=== PATIENT | male | born 1955 | race Caucasian/White ===

== ENCOUNTER 2018-09-18 11:45 | Inpatient (IN) | payer OTHER ==
[2018-09-18 13:15] LABS: ADD MAN DIFF? NO
[2018-09-18 13:20] LABS: WHITE BLOOD COUNT 7.1 10^3/ul (4.8-10.8)
[2018-09-18 13:20] LABS: BASOPHILS % 0.3 % (0.0-2.0); HEMATOCRIT 31.8 % (42.0-52.0); HEMOGLOBIN 9.7 g/dl (14.0-18.0); LYMPHOCYTES # 0.8 10^3/ul (0.8-2.9); LYMPHOCYTES % 10.6 % (15.0-51.0); MEAN CORPUSCULAR HEMOGLOBIN 23.7 pg (29.0-33.0); MEAN CORPUSCULAR HGB CONC 30.5 g/dl (32.0-37.0); MEAN CORPUSCULAR VOLUME 77.8 fl (82.0-101.0); MEAN PLATELET VOLUME 9.1 fl (7.4-10.4); MONOCYTE # 0.3 10^3/ul (0.3-0.9); MONOCYTES % 4.5 % (0.0-11.0); NEUTROPHIL # 5.9 10^3/ul (1.6-7.5); PLATELET COUNT 290 10^3/UL (140-415); RED BLOOD COUNT 4.09 10^6/ul (4.70-6.10); RED CELL DISTRIBUTION WIDTH 19.2 % (11.5-14.5)
[2018-09-18 13:40] LABS: ALANINE AMINOTRANSFERASE 15 IU/L (13-69); ALBUMIN 4.1 g/dl (3.3-4.9); ALBUMIN/GLOBULIN RATIO 1.05; ALKALINE PHOSPHATASE 76 IU/L (42-121); ANION GAP 12 (5-13); ASPARTATE AMINO TRANSFERASE 30 IU/L (15-46); BILIRUBIN,INDIRECT 0.7 mg/dl (0-1.1); BILIRUBIN,TOTAL 0.7 mg/dl (0.2-1.3); BLOOD UREA NITROGEN 21 mg/dl (7-20); CALCIUM 9.6 mg/dl (8.4-10.2); CARBON DIOXIDE 31 mmol/L (21-31); CHLORIDE 100 mmol/L (97-110); CREATININE 0.65 mg/dl (0.61-1.24); Estimated GFR > 60 mL/min (>60); GLUCOSE 81 mg/dl (70-220); POTASSIUM 3.9 mmol/L (3.5-5.1); SODIUM 143 mmol/L (135-144)
[2018-09-18] MEDS: IOHEXOL 300MG/ML 150 ML BTL ×2 (14:51→16:47)
[2018-09-18] MEDS: SOD CHLORIDE 0.9% 100 ML ×2 (14:51→16:46)
[2018-09-18] MEDS ORDERED: SOD CHLORIDE 0.9% 1,000 ML IV (15:38)
[2018-09-18] MEDS ORDERED: ONDANSETRON 4 MG INJ IV ×2 (16:00→16:30)
[2018-09-18] MEDS ORDERED: ACETAMINOPHEN 325 MG TAB PO (16:00)
[2018-09-18] MEDS: FLUCONAZOLE 200 MG (PMX) 100 ML IVPB (16:27)
[2018-09-18] MEDS: NYSTATIN SUSP 5 ML CUP PO ×3 (16:28→20:18)
[2018-09-18] MEDS ORDERED: NACL 0.9% 3 ML SYG IV (16:30)
[2018-09-18 17:30] LABS: IRON 21 ug/dl (35-150)
[2018-09-18 17:39] LABS: % IRON SATURATION 6 % SAT (22-52); TOTAL IRON BINDING CAPACITY 346 ug/dl (241-421)
[2018-09-18] MEDS: DEXTROSE 5%-0.45% NACL 1,000 ML IV (18:19)
[2018-09-18] MEDS: FLUCONAZOLE 100 MG/50 ML (PMX) 50 ML IVPB (19:30)
[2018-09-19] MEDS: DEXTROSE 5%-0.45% NACL 1,000 ML IV ×4 (05:29→23:56)
[2018-09-19] MEDS: PANTOPRAZOLE 40 MG INJ IV (05:51)
[2018-09-19 05:57] LABS: ADD MAN DIFF? NO
[2018-09-19 06:04] LABS: WHITE BLOOD COUNT 5.9 10^3/ul (4.8-10.8)
[2018-09-19 06:04] LABS: BASOPHILS % 0.2 % (0.0-2.0); HEMATOCRIT 30.8 % (42.0-52.0); HEMOGLOBIN 9.2 g/dl (14.0-18.0); LYMPHOCYTES % 16.5 % (15.0-51.0); MEAN CORPUSCULAR HEMOGLOBIN 23.5 pg (29.0-33.0); MEAN CORPUSCULAR HGB CONC 29.9 g/dl (32.0-37.0); MEAN CORPUSCULAR VOLUME 78.8 fl (82.0-101.0); MEAN PLATELET VOLUME 9.8 fl (7.4-10.4); MONOCYTE # 0.4 10^3/ul (0.3-0.9); MONOCYTES % 7.4 % (0.0-11.0); NEUTROPHIL # 4.5 10^3/ul (1.6-7.5); NEUTROPHILS % 75.6 % (39.0-77.0); PLATELET COUNT 278 10^3/UL (140-415); RED BLOOD COUNT 3.91 10^6/ul (4.70-6.10); RED CELL DISTRIBUTION WIDTH 19.1 % (11.5-14.5)
[2018-09-19 07:05] LABS: ANION GAP 9 (5-13); BLOOD UREA NITROGEN 19 mg/dl (7-20); CALCIUM 9.1 mg/dl (8.4-10.2); CARBON DIOXIDE 31 mmol/L (21-31); CHLORIDE 99 mmol/L (97-110); Estimated GFR > 60 mL/min (>60); GLUCOSE 88 mg/dl (70-220); MAGNESIUM 2.3 mg/dl (1.7-2.5); POTASSIUM 4.7 mmol/L (3.5-5.1); SODIUM 139 mmol/L (135-144)
[2018-09-19] MEDS: NYSTATIN SUSP 5 ML CUP PO ×2 (08:45→13:44)
[2018-09-19] MEDS: NICOTINE (21 MG/24 HR) PATCH TRANSDERM (08:45)
[2018-09-19] MEDS: FLUCONAZOLE 100 MG/50 ML (PMX) 50 ML IVPB (16:51)
[2018-09-19] MEDS: HEPARIN 5,000 UNIT/1 ML VIAL SC (20:46)
[2018-09-20] MEDS: PANTOPRAZOLE 40 MG INJ IV (05:17)
[2018-09-20 05:59] LABS: ADD MAN DIFF? NO
[2018-09-20 06:04] LABS: WHITE BLOOD COUNT 4.9 10^3/ul (4.8-10.8)
[2018-09-20 06:04] LABS: BASOPHILS % 0.2 % (0.0-2.0); HEMATOCRIT 33.2 % (42.0-52.0); HEMOGLOBIN 9.9 g/dl (14.0-18.0); LYMPHOCYTES # 0.8 10^3/ul (0.8-2.9); LYMPHOCYTES % 16.9 % (15.0-51.0); MEAN CORPUSCULAR HEMOGLOBIN 23.1 pg (29.0-33.0); MEAN CORPUSCULAR HGB CONC 29.8 g/dl (32.0-37.0); MEAN CORPUSCULAR VOLUME 77.6 fl (82.0-101.0); MEAN PLATELET VOLUME 9.8 fl (7.4-10.4); MONOCYTE # 0.3 10^3/ul (0.3-0.9); NEUTROPHIL # 3.7 10^3/ul (1.6-7.5); NEUTROPHILS % 75.7 % (39.0-77.0); PLATELET COUNT 284 10^3/UL (140-415); RED BLOOD COUNT 4.28 10^6/ul (4.70-6.10); RED CELL DISTRIBUTION WIDTH 19.4 % (11.5-14.5)
[2018-09-20 06:38] LABS: ALBUMIN 3.3 g/dl (3.3-4.9); ANION GAP 10 (5-13); BLOOD UREA NITROGEN 13 mg/dl (7-20); CARBON DIOXIDE 29 mmol/L (21-31); CHLORIDE 98 mmol/L (97-110); GLUCOSE 100 mg/dl (70-220); MAGNESIUM 2.1 mg/dl (1.7-2.5); POTASSIUM 4.3 mmol/L (3.5-5.1); SODIUM 137 mmol/L (135-144)
[2018-09-20] MEDS: HEPARIN 5,000 UNIT/1 ML VIAL SC (09:04)
[2018-09-20] MEDS: NICOTINE (21 MG/24 HR) PATCH TRANSDERM (09:08)
[2018-09-20] MEDS: SOD FERRIC GLUC COMPLX 125 MG in SOD CHLORIDE 0.9% 100 ML IVPB (14:01)
[2018-09-20 15:36] LABS: INR 0.88; PT RATIO 0.9
[2018-09-20 15:38] LABS: PARTIAL THROMBOPLASTIN TIME 55.9 Sec (23.0-35.0)
[2018-09-20] MEDS: FLUCONAZOLE 100 MG/50 ML (PMX) 50 ML IVPB (18:17)
[2018-09-20] MEDS: DEXTROSE 5%-0.45% NACL 1,000 ML IV (18:19)
[2018-09-21] MEDS: DEXTROSE 5%-0.45% NACL 1,000 ML IV ×2 (01:30→06:12)
[2018-09-21 04:57] LABS: ADD MAN DIFF? NO
[2018-09-21 05:01] LABS: BASOPHILS % 0.2 % (0.0-2.0); HEMOGLOBIN 8.8 g/dl (14.0-18.0); LYMPHOCYTES # 0.8 10^3/ul (0.8-2.9); LYMPHOCYTES % 14.8 % (15.0-51.0); MEAN CORPUSCULAR HEMOGLOBIN 23.2 pg (29.0-33.0); MEAN CORPUSCULAR HGB CONC 30.3 g/dl (32.0-37.0); MEAN CORPUSCULAR VOLUME 76.3 fl (82.0-101.0); MEAN PLATELET VOLUME 9.3 fl (7.4-10.4); MONOCYTE # 0.4 10^3/ul (0.3-0.9); MONOCYTES % 7.8 % (0.0-11.0); NEUTROPHIL # 3.9 10^3/ul (1.6-7.5); NEUTROPHILS % 76.8 % (39.0-77.0); PLATELET COUNT 257 10^3/UL (140-415); RED CELL DISTRIBUTION WIDTH 18.8 % (11.5-14.5)
[2018-09-21 05:01] LABS: WHITE BLOOD COUNT 5.1 10^3/ul (4.8-10.8)
[2018-09-21 05:18] LABS: ANION GAP 9 (5-13); BLOOD UREA NITROGEN 9 mg/dl (7-20); CALCIUM 8.7 mg/dl (8.4-10.2); CARBON DIOXIDE 30 mmol/L (21-31); CHLORIDE 94 mmol/L (97-110); CREATININE 0.56 mg/dl (0.61-1.24); Estimated GFR > 60 mL/min (>60); GLUCOSE 102 mg/dl (70-220); PHOSPHORUS 2.8 mg/dl (2.5-4.9); POTASSIUM 3.5 mmol/L (3.5-5.1); SODIUM 133 mmol/L (135-144)
[2018-09-21] MEDS: PANTOPRAZOLE 40 MG INJ IV (06:12)
[2018-09-21] MEDS: HEPARIN 5,000 UNIT/1 ML VIAL SC (08:00)
[2018-09-21] MEDS: INFLUENZA VIRUS VACCINE 0.5 ML (DISPENSING) IM* (08:28)
[2018-09-21] MEDS: NICOTINE (21 MG/24 HR) PATCH TRANSDERM (08:29)
[2018-09-21] MEDS: LIDOCAINE 1% (MDV) 20 ML INJ (09:19)
[2018-09-21] MEDS: LIDOCAINE 1% (MPF) 5 ML VIAL (10:00)
[2018-09-21] MEDS: SOD FERRIC GLUC COMPLX 125 MG in SOD CHLORIDE 0.9% 100 ML IVPB (13:21)
[2018-09-21 15:05] LABS: HEMATOCRIT 29.3 % (42.0-52.0); HEMOGLOBIN 9.1 g/dl (14.0-18.0)
[2018-09-21] MEDS: FLUCONAZOLE 100 MG/50 ML (PMX) 50 ML IVPB (17:54)
[2018-09-22] MEDS: DEXTROSE 5%-0.45% NACL 1,000 ML IV ×3 (01:06→23:31)
[2018-09-22] MEDS: PANTOPRAZOLE 40 MG INJ IV (05:20)
[2018-09-22 05:28] LABS: ADD MAN DIFF? NO
[2018-09-22 05:30] LABS: WHITE BLOOD COUNT 5.4 10^3/ul (4.8-10.8)
[2018-09-22 05:30] LABS: BASOPHILS % 0.2 % (0.0-2.0); HEMATOCRIT 29.4 % (42.0-52.0); HEMOGLOBIN 8.9 g/dl (14.0-18.0); LYMPHOCYTES # 0.6 10^3/ul (0.8-2.9); LYMPHOCYTES % 11.3 % (15.0-51.0); MEAN CORPUSCULAR HGB CONC 30.3 g/dl (32.0-37.0); MEAN PLATELET VOLUME 9.7 fl (7.4-10.4); MONOCYTE # 0.5 10^3/ul (0.3-0.9); MONOCYTES % 8.3 % (0.0-11.0); NEUTROPHIL # 4.3 10^3/ul (1.6-7.5); NEUTROPHILS % 79.8 % (39.0-77.0); PLATELET COUNT 256 10^3/UL (140-415); RED BLOOD COUNT 3.87 10^6/ul (4.70-6.10); RED CELL DISTRIBUTION WIDTH 18.9 % (11.5-14.5)
[2018-09-22 05:47] LABS: INR 0.91; PROTIME 12.4 Sec (11.9-14.9)
[2018-09-22 05:48] LABS: PARTIAL THROMBOPLASTIN TIME 44.3 Sec (23.0-35.0)
[2018-09-22 05:55] LABS: ANION GAP 9 (5-13); BLOOD UREA NITROGEN 7 mg/dl (7-20); CALCIUM 8.5 mg/dl (8.4-10.2); CARBON DIOXIDE 30 mmol/L (21-31); CHLORIDE 92 mmol/L (97-110); CREATININE 0.53 mg/dl (0.61-1.24); Estimated GFR > 60 mL/min (>60); GLUCOSE 91 mg/dl (70-220); MAGNESIUM 1.9 mg/dl (1.7-2.5); PHOSPHORUS 2.6 mg/dl (2.5-4.9); SODIUM 131 mmol/L (135-144)
[2018-09-22] MEDS: NICOTINE (21 MG/24 HR) PATCH TRANSDERM (09:26)
[2018-09-22] MEDS: HEPARIN 1000 UNITS/ML 10 ML INJ (09:29)
[2018-09-22] MEDS: LIDOCAINE 1%/EPI (1:100,000) (MDV) 20 ML (09:29)
[2018-09-22] MEDS: PROPOFOL 20 ML (09:48)
[2018-09-22] MEDS: MIDAZOLAM 1 MG/ML 2 ML INJ (09:48)
[2018-09-22] MEDS: FENTAnyl 50 MCG/ML VIAL (09:48)
[2018-09-22] MEDS: POLYMYXIN/BACITRACIN 1L IRRIG IRR (10:00)
[2018-09-22] MEDS: CEFAZOLIN 1 GM/50 ML (PMX) 0 ML IVPB (10:22)
[2018-09-22] MEDS: CEFAZOLIN 1 GM/50 ML (PMX) 50 ML IVPB (10:22)
[2018-09-22] MEDS ORDERED: CEFAZOLIN 1 GM/50 ML (PMX) 50 ML IVPB (12:30)
[2018-09-22] MEDS: POTASSIUM CHLORIDE 100 ML IVPB ×4 (13:07→21:30)
[2018-09-22] MEDS ORDERED: PROPOFOL 20 ML (15:30)
[2018-09-22] MEDS ORDERED: ONDANSETRON 4 MG INJ IV (15:30)
[2018-09-22] MEDS ORDERED: FENTAnyl 50 MCG/ML VIAL (15:30)
[2018-09-22] MEDS: SOD FERRIC GLUC COMPLX 125 MG in SOD CHLORIDE 0.9% 100 ML IVPB (16:41)
[2018-09-22] MEDS: SUCRALFATE (100 MG/ML) 10ML CUP PO ×2 (17:48→20:31)
[2018-09-22] MEDS: METOCLOPRAMIDE 10 MG INJ IV ×2 (17:48→23:31)
[2018-09-22] MEDS: FLUCONAZOLE 100 MG/50 ML (PMX) 50 ML IVPB (17:49)
[2018-09-22] MEDS ORDERED: PANTOPRAZOLE 40 MG INJ IV (21:00)
[2018-09-22] MEDS: LORAZEPAM 2 MG INJ IV (21:55)
[2018-09-23] MEDS: DEXTROSE 5%-0.45% NACL 1,000 ML IV (02:49)
[2018-09-23] MEDS: morphine 2 MG INJ IV (05:12)
[2018-09-23 05:48] LABS: WHITE BLOOD COUNT 8.9 10^3/ul (4.8-10.8)
[2018-09-23 05:48] LABS: ABNORMAL IP MESSAGE 1; HEMOGLOBIN 9.6 g/dl (14.0-18.0); MEAN CORPUSCULAR HEMOGLOBIN 24.1 pg (29.0-33.0); MEAN CORPUSCULAR VOLUME 75.4 fl (82.0-101.0); MEAN PLATELET VOLUME 10.2 fl (7.4-10.4); PLATELET COUNT 209 10^3/UL (140-415); POSITIVE DIFF @See below; RED BLOOD COUNT 3.98 10^6/ul (4.70-6.10)
[2018-09-23 06:09] LABS: ANION GAP 9 (5-13); BLOOD UREA NITROGEN 8 mg/dl (7-20); CALCIUM 8.8 mg/dl (8.4-10.2); CARBON DIOXIDE 29 mmol/L (21-31); CHLORIDE 89 mmol/L (97-110); CREATININE 0.58 mg/dl (0.61-1.24); Estimated GFR > 60 mL/min (>60); GLUCOSE 102 mg/dl (70-220); MAGNESIUM 1.7 mg/dl (1.7-2.5); PHOSPHORUS 2.4 mg/dl (2.5-4.9); SODIUM 127 mmol/L (135-144)
[2018-09-23] MEDS: FAMOTIDINE 20 MG INJ IV (06:13)
[2018-09-23] MEDS: METOCLOPRAMIDE 10 MG INJ IV (06:13)
[2018-09-23 06:48] LABS: ADD MAN DIFF? YES
[2018-09-23] MEDS: SUCRALFATE (100 MG/ML) 10ML CUP PO (08:57)
[2018-09-23] MEDS: NICOTINE (21 MG/24 HR) PATCH TRANSDERM (08:57)
[2018-09-23 09:06] LABS: ANISOCYTOSIS 1+ (0-0); BAND NEUTROPHILS #M 1.4 10^3/ul (0.0-0.6); BAND NEUTROPHILS % (M) 16 % (0-4); BURR CELLS 1+ (0-0); GIANT THROMBO% (M) 2 % (0-0); HYPOCHROMASIA 1+ (0-0); LYMPHOCYTES #M 0.6 10^3/ul (0.8-2.9); LYMPHOCYTES % (M) 7 % (15-51); MICROCYTOSIS 2+ (0-0); MONOCYTE #M 0.1 10^3/ul (0.3-0.9); MONOCYTES % (M) 2 % (0-11); OVALOCYTES 1+ (0-0); PLATELET ESTIMATE NORMAL; SEG NEUT #M 6.8 10^3/ul (1.6-7.5); SEGMENTED NEUTROPHILS (M) % 75 % (39-77); SMUDGE%M 1 % (0-0); SPHEROCYTES 1+ (0-0); TOXIC GRANULATION 1+ (0-0)
[2018-09-23] MEDS: SOD CHLORIDE 0.9% 1,000 ML IV (09:44)
[2018-09-23] MEDS: RACEPINEPHRINE 2.25%(NEB) 0.5 ML AMP HHN (10:13)
[2018-09-23 10:21] LABS: AADO2 Arterial 590.4 mmHg (7.0-24.0); Allen Test ACCEPTAB; Arterial Blood Gas Oxygen Sat 97.6 mmHG (95.0-98.0); Arterial COHb 0 % (0.0-3.0); Arterial Fraction of Oxyhgb 97.3 % (93.0-99.0); Arterial MetHb 0.3 % (0.0-1.5); Arterial pCO2 29.2 mmhg (35-45); MODE MASK - NRB; Site Left Radial
[2018-09-23] MEDS ORDERED: SODIUM PHOSPHATE 15 MMOL in SOD CHLORIDE 0.9% 250 ML IVPB (11:00)
[2018-09-23] MEDS ORDERED: PROPOFOL 100 ML (11:17)
[2018-09-23] MEDS: PROPOFOL 100 ML IV (11:26)
[2018-09-23] MEDS ORDERED: DOPamine-D5W 1.6 MG/ML 250 ML (11:33)
[2018-09-23] MEDS ORDERED: PHENYLephrine 40 MG in DEXTROSE 5% 246 ML IV (12:00)
[2018-09-23] MEDS ORDERED: DOPamine-D5W 1.6 MG/ML 250 ML IV (12:00)
[2018-09-23] MEDS ORDERED: NORepinephrine 8MG/250 ML (PMX 250 ML IV ×2 (12:00)
== END 2018-09-23 12:07 | disposition expired | DRG 146 ==
LOC: ICU 09-23 10:25 → E/R 11:45 → 2NE 15:38
PROC: 0JB53ZX Excision of Left Neck Subcutaneous Tissue and Fascia, Percutaneous Approach, Diagnostic (ICD-10-PCS; principal; 2018-09-22 14:00)
PROC: 0DJ08ZZ Inspection of Upper Intestinal Tract, Via Natural or Artificial Opening Endoscopic (ICD-10-PCS; 2018-09-22 14:00)
PROC: 0DH63UZ Insertion of Feeding Device into Stomach, Percutaneous Approach (ICD-10-PCS; 2018-09-22 14:00)
DX: C06.9 Malignant neoplasm of mouth, unspecified (principal); E43 Unspecified severe protein-calorie malnutrition; B37.0 Candidal stomatitis; C79.89 Secondary malignant neoplasm of other specified sites; D50.9 Iron deficiency anemia, unspecified; F17.200 Nicotine dependence, unspecified, uncomplicated; R13.10 Dysphagia, unspecified
CPT/HCPCS: 31500; 36415; 36561; 36600; 70491; 70543; 71045; 71260; 74177; 76942; 80048; 80053; 80069; 82803; 82962; 83540; 83735; 84100; 85014; 85018; 85025; 85610; 85730; 88307; 88313; 88341; 88342; 90686; 92610; 92950; 94002; 94664; 97161; 99285-25